=== PATIENT | male | born 1955 | race Caucasian/White ===

== ENCOUNTER 2020-12-03 12:41 | Inpatient (IN) | payer OTHER ==
[2020-12-03 14:27] LABS: HEMOGLOBIN 14.7 gm/dl (14.0-17.5); RED BLOOD COUNT 4.93 M/UL (4.20-5.50); WHITE BLOOD COUNT 6.2 K/UL (4.5-11.0)
[2020-12-03 14:52] LABS: BUN/CREATININE RATIO 19 (0-10)
[2020-12-03] MEDS ORDERED: ALBUTEROL2.5 MG/3 M INH (16:44)
[2020-12-03] MEDS ORDERED: AMOX TR-K CLV1 EAC4 PO (16:49)
[2020-12-03] MEDS ORDERED: FLONASE 0.05% N16 GM (16:52)
[2020-12-03] MEDS ORDERED: LASIX80 MG PO (16:53)
[2020-12-03] MEDS ORDERED: XYLOCAINE 5% OI35 GM TOP (16:54)
[2020-12-03] MEDS ORDERED: MYCOSTATIN CREA15 GM TOP (16:56)
[2020-12-03] MEDS ORDERED: OMEPRAZOLE40 MG PO (16:58)
[2020-12-03] MEDS ORDERED: K-TAB ER10 MEQ PO (17:01)
[2020-12-03] MEDS ORDERED: FLOMAX 0.4 MG0.4 MG PO (17:04)
[2020-12-04 03:15] LABS: RED BLOOD COUNT 4.96 M/UL (4.20-5.50); WHITE BLOOD COUNT 5.5 K/UL (4.5-11.0)
[2020-12-04 03:37] LABS: BUN/CREATININE RATIO 22 (0-10)
--- NOTE | 2020-12-04 17:31 | NUR ---
PT WAS APPROACHED SEVERAL TIMES TODAY REGARDING PLASMA INFUSION, WAS REFUSED BY PT
[2020-12-05 04:29] LABS: HEMOGLOBIN 14.7 gm/dl (14.0-17.5); RED BLOOD COUNT 4.85 M/UL (4.20-5.50)
[2020-12-05 04:32] LABS: WHITE BLOOD COUNT 7.5 K/UL (4.5-11.0)
[2020-12-05 04:50] LABS: BUN/CREATININE RATIO 23 (0-10)
[2020-12-06 04:23] LABS: RED BLOOD COUNT 4.96 M/UL (4.20-5.50); WHITE BLOOD COUNT 7.9 K/UL (4.5-11.0)
[2020-12-06 04:50] LABS: BUN/CREATININE RATIO 28 (0-10)
[2020-12-07 03:50] LABS: RED BLOOD COUNT 4.93 M/UL (4.20-5.50)
[2020-12-07 03:51] LABS: WHITE BLOOD COUNT 10.2 K/UL (4.5-11.0)
[2020-12-07 04:06] LABS: BUN/CREATININE RATIO 32 (0-10)
[2020-12-08 06:46] LABS: HEMOGLOBIN 15.8 gm/dl (14.0-17.5); RED BLOOD COUNT 5.2 M/UL (4.20-5.50)
[2020-12-08 07:09] LABS: BUN/CREATININE RATIO 28 (0-10)
[2020-12-08] MEDS ORDERED: LEVOFLOXACIN750 MG PO (10:20)
[2020-12-08] MEDS ORDERED: MELATONIN3 MG PO (10:20)
[2020-12-08] MEDS ORDERED: DECADRON4 MG PO (10:20)
== END 2020-12-08 15:44 | DRG 177 ==
LOC: ER1 12:41 → PROG CARE 16:36 → CDU 16:36 → PROG CARE 19:24 → M/S 12-07 13:01
PROVIDERS: Nurse Practitioner; ADMIT Family Medicine
PROC: 8E0ZXY6 Isolation (ICD-10-PCS; principal; 2020-12-03)
PROC: XW033E5 Introduction of Remdesivir Anti-infective into Peripheral Vein, Percutaneous Approach, New Technology Group 5 (ICD-10-PCS; 2020-12-03)
DX: U07.1 COVID-19 (principal); J12.82 Pneumonia due to coronavirus disease 2019; J96.21 Acute and chronic respiratory failure with hypoxia; J15.6 Pneumonia due to other Gram-negative bacteria; Z68.45 Body mass index [BMI] 70 or greater, adult; E87.1 Hypo-osmolality and hyponatremia; E66.01 Morbid (severe) obesity due to excess calories; I11.0 Hypertensive heart disease with heart failure; I50.9 Heart failure, unspecified; E11.40 Type 2 diabetes mellitus with diabetic neuropathy, unspecified; G89.29 Other chronic pain; M54.9 Dorsalgia, unspecified; J60 Coalworker's pneumoconiosis; J44.9 Chronic obstructive pulmonary disease, unspecified; Z66 Do not resuscitate; Z82.3 Family history of stroke; Z99.81 Dependence on supplemental oxygen; Z79.899 Other long term (current) drug therapy
CPT/HCPCS: 36415; 36600; 71045; 80048; 80053; 80202; 82728; 82803; 82962; 83605; 83615; 83735; 83880; 84484; 85025; 85027; 85379; 85610; 86140; 86900; 86901; 87040; 90471; 93005; 94760; 96365; 96367; 96372; 96375; 97162; 97166; 99285; J1100; J1205; J1650; J2543; J3370; J7030; J7070